=== PATIENT | female | born 1955 | race Caucasian/White ===

== ENCOUNTER 2016-09-10 20:56 | Emergency (ER) | payer OTHER ==
[~2016-09-10] VITALS: Ht 157.5 cm; Wt 81.6 kg
[2016-09-10] MEDS ORDERED: KETOROLAC 30 MG/ML VIAL IVP STA (23:10)
[2016-09-10] MEDS ORDERED: ORPHENADRINE 60 MG/2 ML (NORFLEX) AMP IV STA (23:10)
[2016-09-10] MEDS ORDERED: NS IV 1000 ML 1,000 ML IV ONE (23:10)
[2016-09-10] MEDS ORDERED: ONDANSETRON 4 MG/2 ML (SDV) Z0FRAN IVP ONE (23:15)
[2016-09-10] MEDS ORDERED: ONDA8TAB13 PO (23:23)
[2016-09-10] MEDS ORDERED: morphine INJ 10 MG/ML 1ML (SYR OR VIAL) IVP STA (23:58)
--- NOTE | 2016-09-11 00:17 | ED Headache ---
General Chief Complaint: Head/Cervical Problems Stated Complaint: VOMITING AND MIGRANE Source: patient Exam Limitations: no limitations History of Present Illness Time seen by provider: 23:00 Allergies and Home Medications Allergies Coded Allergies: Sulfa (Sulfonamide Antibiotics) (Verified Allergy, Unknown, 09/10/16) Uncoded Allergies: "a whole bunch of antibiotics" (Allergy, Unknown, 09/10/16) Home Medications Ondansetron 8 Mg Tab.rapdis, 8 MG PO Q6H PRN for NAUSEA/VOMITING-1ST LINE, #10 Ref 0 Prescribed by: GOGO MENDEZ on 09/10/16 1461 Past Zdfjlly-Aslpzo-Hcwoas Hx Patient Social History Alcohol Use: Denies Use Recreational Drug Use: No Smoking Status: Never a Smoker Recent Foreign Travel: No Contact w/Someone Who Travel: No Recent Hopitalizations: No Surgeries Surgeries: Gallbladder, Hysterectomy, Tubal Ligation Neurological Neurological Disorders: Headaches /Migraines Physical Exam Vital Signs Capillary Refill : Progress/Results/Core Measures Results/Orders My Orders Orders - GOGO MENDEZ Saline Lock/Iv-Start (09/10/16 23:10) Ketorolac Injection (Toradol Injection) (09/10/16 23:10) Orphenadrine Injection (Norflex Injectio (09/10/16 23:10) Ondansetron Injection (Zofran Injectio (09/10/16 23:15) Ns Iv 1000 Ml (Sodium Chloride 0.9%) (09/10/16 23:10) Morphine Injection (Morphine Injection (09/10/16 23:58) Medications Given in ED Current Medications Medications Dose Ordered Sig/Zuleima Route Start Time Stop Time Status Last Admin Dose Admin Ondansetron HCl 8 mg ONCE ONCE IVP 09/10/16 23:15 09/10/16 23:16 DC 09/10/16 23:24 8 MG Sodium Chloride 1,000 ml @ 0 mls/hr Q0M ONCE IV 09/10/16 23:10 09/10/16 23:14 DC 09/10/16 23:24 1,000 MLS/HR Departure Impression Impression: Primary Impression: Migraine Qualified Codes: G43.909 - Migraine, unspecified, not intractable, without status migrainosus Disposition: 01 HOME, SELF-CARE Condition: Improved Departure-Patient Inst. Decision time for Depature: 23:40 Referrals: EDINSON COLE DO (PCP) Primary Care Physician Patient Instructions: Migraine Headache (DC) Add. Discharge Instructions: All discharge instructions reviewed with patient and/or family. Voiced understanding. Medications as instructed. Continue usual home medications. Drink plenty of fluids. Contact Dr. Johnson's office first thing in the morning to notify him that you did not complete the bowel prep. Follow-up with Dr. Cole as an outpatient for a recheck. Return to the emergency department for worsened symptoms or any other concerns. Scripts Ondansetron (Ondansetron Odt) 8 Mg Tab.rapdis 8 MG PO Q6H Y for NAUSEA/VOMITING-1ST LINE, #10 TAB 0 Refills Prov: GOGO MENDEZ 09/10/16 GOGO MENDEZ Sep 11, 2016 00:17
[2016-09-11 00:30] VITALS: BP 125/61
== END 2016-09-11 00:30 | disposition home or self-care (01) ==
LOC: EDUNIT# 20:56 → ER 20:57
DX: G43.909 Migraine, unspecified, not intractable, without status migrainosus (principal)